=== PATIENT | female | born 1995 | race Caucasian/White ===

== ENCOUNTER 2024-04-05 09:42 | Inpatient (IN) | payer BC ==
[2024-04-12] MEDS ORDERED: METHYLERGONOVINE 0.2 MG/ML 1 ML AMP IM PRN (06:19)
[2024-04-12] MEDS ORDERED: CARBOPROST TROMETHAMINE 250 MCG/ML 1 ML AMP IM PRN (06:19)
[2024-04-12] MEDS ORDERED: OXYTOCIN 10 UNIT/ML 1 ML VIAL IM PRN (06:19)
[2024-04-12] MEDS ORDERED: miSOPROStoL 200 MCG TAB PO PRN (06:19)
[2024-04-12] MEDS ORDERED: TRANEXAMIC 1,000 MG/100ML-NACL 1,000 MG in EMPTY BAG 1 BAG IV PRN (06:19)
[2024-04-12] MEDS ORDERED: TERBUTALINE 1 MG/ML VIAL SQ PRN (06:19)
[2024-04-12] MEDS: LACTATED RINGERS 1,000 ML IV SCH (06:32)
[2024-04-12] MEDS: OXYTOCIN 30 UNITS/500 ML NS 30 UNIT in SALINE 1 500ML.BAG IV SCH (06:33)
[2024-04-12 07:02] LABS: Anisocytosis Slight; Basophils % (A) 0 %; Eosinophils # (A) 0.1 k/uL (0-0.7); Eosinophils % (A) 1 %; HCT 33.9 % (34.0-46.0); HGB 10.5 gm/dL (11.4-16.0); Hypochromasia Moderate; Lymphocytes # (A) 1.8 k/uL (1.0-4.8); Lymphocytes % (A) 22 %; MCH 25.5 pg (25.0-35.0); MCHC 30.8 g/dL (31.0-37.0); MCV 82.8 fL (80.0-100.0); Mean Platelet Volume 10.2; Monocytes # (A) 0.6 k/uL (0-1.0); Monocytes % (A) 7 %; Neutrophils # (A) 5.3 k/uL (1.3-7.7); Neutrophils % (A) 67 %; Platelet Count 152 k/uL (150-450); Poikilocytosis Slight
--- NOTE | 2024-04-12 09:06 | P.HPOB ---
History of Present Illness H&P Date: 04/12/24 Chief Complaint: post-dates Ms. Lowe is a 28 year old at 41 weeks gestation with EDC of 04/05/2024 by LMP consistent with 8 week US who presents to L&D for scheduled induction of labor for post-dates gestation. Her has been complicated by Rh negative status, for which she received rhogam at 28 weeks. The patient also has a history of tachycardia for which she has been evaluated by cardiology. At the anatomy US a low-lying placenta was noted and this resolved by the 32 week growth US. This growth US estimated the fetus to be in the 39%ile for weight. work-up: blood type A negative, antibody negative, rubella immune, VDRL non-reactive, HbsAg negative, HIV negative, HCV Ab negative, gonorrhea negative, chlamydia negative, 1 hour GTT wnl, GBS negative. s/p Tdap in 3rd trimester. Past Medical History Past Medical History: No Reported History History of Any Multi-Drug Resistant Organisms: None Reported Past Surgical History: Adenoidectomy Past Psychological History: No Psychological Hx Reported Smoking Status: Never smoker Past Alcohol Use History: None Reported Past Drug Use History: None Reported Medications and Allergies Home Medications Medication Instructions Recorded Confirmed Type Vit No.179/Iron/Folic 1 tab PO DAILY 04/12/24 04/12/24 History [ Tablet] Allergies Allergy/AdvReac Type Severity Reaction Status Date / Time No Known Allergies Allergy Verified 04/12/24 06:17 Exam Vital Signs Temp Pulse Resp BP Pulse Ox 04/12/24 06:17 98.5 F 100 16 132/85 100 Intake and Output 04/11/24 04/12/24 04/12/24 22:59 06:59 14:59 Other: Weight 72.575 kg Focused physical exam is performed. This is a healthy-appearing in no apparent distress. Breathing is non-labored. Abdomen is gravid and non-tender. Cervical exam is 3.5 cm, 70 effacement, -2 station. AROM is undertaken with clear fluid noted. Extremities non-tender and non-edematous. heart tones are Category I and tocometer is graphing contractions every 2-4 minutes. Results Result Diagrams: 04/12/24 06:15 Abnormal Lab Results - Last 24 Hours (Table) 06/18/24 Range/Units 06:15 Hgb 10.5 L (11.4-16.0) gm/dL Hct 33.9 L (34.0-46.0) % MCHC 30.8 L (31.0-37.0) g/dL RDW 17.0 H (11.5-15.5) % Assessment and Plan Assessment: 28 year old at 41 weeks presenting for induction of labor Plan: Admit, clear liquid diet, pitocin per protocol, epidural prn, continuous EFM and tocometer, anticipate vaginal delivery.
[2024-04-12] MEDS: NALBUPHINE 10 MG/ML (10 ML MDV) IV PRN (11:36)
[2024-04-12] MEDS ORDERED: SODIUM CHLORIDE 0.9% 250 ML BAG ONE (15:24)
[2024-04-12] MEDS ORDERED: fentaNYL (PF) 50 MCG/ML 5 ML AMP ONE (15:24)
[2024-04-12] MEDS ORDERED: ROPIVACAINE 5 MG/ML 30 ML VIAL ONE (15:24)
[2024-04-13] MEDS ORDERED: diphenhydrAMINE 50 MG CAP PO PRN (00:20)
[2024-04-13] MEDS ORDERED: diphenhydrAMINE 25 MG CAP PO PRN (00:20)
[2024-04-13] MEDS ORDERED: SIMETHICONE 80 MG CHEWABLE PO PRN (00:20)
[2024-04-13] MEDS ORDERED: LANOLIN CREAM 1 GM TUBE TOPICAL PRN (00:20)
[2024-04-13] MEDS ORDERED: ZOLPIDEM 5 MG TAB PO PRN (00:20)
[2024-04-13] MEDS ORDERED: HYDROCORTISONE 2.5% RECTAL CREAM 30 GM TUBE RECTAL PRN (00:20)
[2024-04-13] MEDS ORDERED: diphenhydrAMINE 50 MG/ML 1 ML VIAL IVP PRN ×2 (00:20)
--- NOTE | 2024-04-13 00:20 | P.PROBDLV ---
Vaginal Delivery Note - . Vaginal Delivery Note: DATE OF SERVICE: 04/13/2024 PROCEDURE: Vacuum Assisted Vaginal Delivery ATTENDING: Dr. Loretta Cobb MD ESTIMATED BLOOD LOSS: 400 mL FINDINGS: VFI, Apgars 9/9. Weight 8 pounds and 12 ounces (3980 grams) PROCEDURE: Ms. Lowe is a 28 year old at 41weeks presenting to labor and delivery for induction of labor. The has been complicated by Rh negative status for which the patient did receive rhogam. For further details, please review the admitting H&P. Pitocin was titrated per protocol. Amniotomy was performed at 901 revealing clear amniotic fluid. The patient received epidural anesthesia per her request. The patient was completely dilated at 2030. The patient pushed effectively but eventually because exhausted. Because of this, a vacuum delivery was recommended. The risks, benefits, and alternatives were reviewed with the patient including risk of a larger degree laceration and scalp hematomas. The patient agreed. The baby's head was confirmed to be in the occiput anterior presentation with 100% effacement and +3 station. The vacuum was placed and the correct placement in front of the posterior fontanelle was confirmed digitally. With the patient's next contraction, the vacuum pressure was increased and a gentle downward pressure was used to assist with brining the baby's head to a +4 station. The vacuum was then removed. The head was delivered without difficulty, followed by the shoulders and remainder of the body. A viable female infant was delivered at 2352. The infant was placed on the maternal abdomen and bulb suctioned. The infant was noted to be spontaneously crying. Cord was clamped and cut after a 30-second delay. The was handed off to the pediatric team. Placenta was delivered whole with gentle cord traction at 2356. Oxytocin was started to facilitate uterine tone. Uterine fundus was found to be firm and below the umbilicus upon fundal massage. Thorough examination of the cervix, vagina, periurethral area, and perineum revealed a second degree laceration. This was infiltrated with lidocaine and repaired in the usual fashion. The patient is stable and allowed to begin the bonding process.
[2024-04-13] MEDS: LIDOCAINE 0.5% (PF) 5 MG/ML (50 ML SDV) SQ PRN (00:33)
[2024-04-13] MEDS: BENZOCAINE/MENTHOL SPRAY 1 GM/SPRAY AEROSOL TOPICAL PRN (00:33)
[2024-04-13] MEDS: IBUPROFEN 600 MG TAB PO PRN (00:40)
[2024-04-13] MEDS: ACETAMINOPHEN TAB 325 MG TAB PO PRN (05:24)
[2024-04-13] MEDS: Rhogam IMMUNE GLOBULIN 1,500 UNIT/1 ML IM ONE (05:40)
[2024-04-13] MEDS: SENNOSIDES-DOCUSATE SODIUM 1 EACH TAB PO SCH (08:14)
--- NOTE | 2024-04-13 08:48 | P.DS ---
Providers Date of admission: 04/12/24 06:08 Expected date of discharge: 04/13/24 Attending physician: Loretta Cobb MD Primary care physician: Stated None Hospital Course: Ms. Lowe is a 28 year old now PPD#1 s/p vacuum assisted vaginal delivery. The patient is doing well this morning and had no acute events overnight. She has no complaints this morning. She reports minimal lochia, passing flatus, voiding without difficulty, ambulating, and eating/drinking without nausea or vomiting. Infant doing well at bedside, is going well. She denies chest pain, shortness of breathing, fevers, or chills overnight . She denies pain or swelling in the legs. Postoperative restrictions are reviewed with the patient including pelvic rest for 6 weeks. The patient is encouraged to call the office if she experiences any heavy bleeding, foul- smelling discharge, breast complaints, or any if she has any other concerns. She will follow up in the office with in 6 weeks for postoperative exam. She plans to use OTC Motrin and Tylenol as needed for pain. All questions are answered. Assessment: 28 year old now PPD#1 s/p VAVD Patient Condition at Discharge: Good Plan - Discharge Summary New Discharge Prescriptions: No Action Vit No.179/Iron/Folic [ Tablet] 1 tab PO DAILY Discharge Medication List Vit No.179/Iron/Folic [ Tablet] 1 tab PO DAILY 04/12/24 [History] Follow up Appointment(s)/Referral(s): Loretta Cobb MD [STAFF PHYSICIAN] - 05/24/24 1:15 pm Activity/Diet/Wound Care/Special Instructions: Instructions 1. Do not begin any exercise program for 3 weeks. 2. Do not resume sexual relations for 6 weeks or longer if uncomfortable. 3. You may take tub baths or showers at any time. 4. You may use tampons if desired after 6 weeks. 5. Keep any areas repaired with stitches clean and dry. 6. If you are not nursing, wear a good fitting, supportive bra during the day and limit fluid intake for at least 1 week to prevent breast engorgement. 7. Call the office, , within the next week to make appointment for your 6 week checkup if it has not already been made. 8. Report any of the following occurrences to the doctor promptly: a. Heavy, excessive bleeding b. Chills, fever c. Burning or frequency of urination d. Pain or redness and breasts if nursing e. Increasing pain or swelling of vulva (stitches). In addition to the above instructions, the following additional should be followed: 1. No heavy lifting or straining (exercising) until after 6 week checkup. 2. Keep abdominal incision clean and dry: You may wear a dressing if more comfortable. 3. Make office appointment for 2 weeks after delivery date. Discharge Disposition: HOME SELF-CARE
[2024-04-13 16:02] VITALS: RESP 16
[2024-04-14 06:45] LABS: Anisocytosis Slight; Basophils % (A) 0 %; Eosinophils # (A) 0.1 k/uL (0-0.7); Eosinophils % (A) 1 %; HCT 27.1 % (34.0-46.0); Hypochromasia Marked; Lymphocytes # (A) 2.6 k/uL (1.0-4.8); Lymphocytes % (A) 25 %; MCH 25.9 pg (25.0-35.0); MCHC 30.9 g/dL (31.0-37.0); MCV 83.6 fL (80.0-100.0); Mean Platelet Volume 10.7; Monocytes # (A) 0.5 k/uL (0-1.0); Monocytes % (A) 5 %; Neutrophils # (A) 6.9 k/uL (1.3-7.7); Neutrophils % (A) 67 %; Platelet Count 127 k/uL (150-450); Poikilocytosis Slight; RBC 3.23 m/uL (3.80-5.40); RDW 17.4 % (11.5-15.5); WBC 10.3 k/uL (3.8-10.6)
[2024-04-14 06:49] LABS: HGB 8.4 gm/dL (11.4-16.0)
[2024-04-14 08:19] VITALS: BP 119/78; PULSE 76; TEMP 98
[2024-04-14] MEDS ORDERED: FERROUS SULFATE 325 MG TAB PO SCH (12:30)
== END 2024-04-14 11:00 | disposition home or self-care (01) | DRG 807 ==
LOC: 4FBP 04-12 06:08
PROVIDERS: ADMIT Obstetrics & Gynecology; ATTEND Obstetrics & Gynecology
PROC: 0KQM0ZZ Repair Perineum Muscle, Open Approach (ICD-10-PCS; principal; 2024-04-12)
PROC: 3E033VJ Introduction of Other Hormone into Peripheral Vein, Percutaneous Approach (ICD-10-PCS; principal; 2024-04-12)
PROC: 10D07Z6 Extraction of Products of Conception, Vacuum, Via Natural or Artificial Opening (ICD-10-PCS; principal; 2024-04-12)
PROC: 10907ZC Drainage of Amniotic Fluid, Therapeutic from Products of Conception, Via Natural or Artificial Opening (ICD-10-PCS; principal; 2024-04-12)
PROC: 3E0234Z Introduction of Serum, Toxoid and Vaccine into Muscle, Percutaneous Approach (ICD-10-PCS; 2024-04-13)
DX: O48.0 Post-term pregnancy (principal); O26.893 Other specified pregnancy related conditions, third trimester; Z67.11 Type A blood, Rh negative; O75.81 Maternal exhaustion complicating labor and delivery; O70.1 Second degree perineal laceration during delivery; Z3A.41 41 weeks gestation of pregnancy; Z37.0 Single live birth
CPT/HCPCS: 85025; 85461; 86850; 86900; 86901